=== PATIENT | female | born 1995 | race Caucasian/White ===

== ENCOUNTER 2018-04-04 11:08 | Inpatient (IN) | payer BC, OTHER ==
[~2018-04-04] VITALS: Ht 172.7 cm; Wt 49.9 kg
--- NOTE | 2018-04-04 13:17 | NUR ---
ADMISSION NOTE Patient is a 22 year old female admitted on 04/04/18 at 1317 to [facility] for medically supervised Heroin withdrawal. Patient is alert oriented x4 ambulatory with steady gait. Patient has NKA, full code and following regular diet at home. Upon arrival skin assessment done, skin intact no contraband found. She is alert oriented x4 able to answer all the questions appropriately. Patient presented with unwashed and uncombed hair. She is odors. She reported past medical history as anxiety, depression, and panic disorder. She is currently not taking any medications and did not bring any medication from home. She denies any family medical history or history of substance abuse. She refused Flu and PNA vaccine. She smokes 1 pack of cigrattes daily. She denies any PCP and psychiatrist. She reported her family and friends are her support system. CIWA score noted -3, COWS differed because last used was 2 hours prior to admission. Vital Signs - BP 135/79, HR- 91, RR -16 TEMP-98.5 SpO2-99% RA, PAIN-0/10. WITHDRAWAL SIGNS She stated currently she is experiencing stuffy nose, legs cramps, but usually she experience Vomiting, myalgia, insomnia, yawning, Phlegm, depression. She reported history of drug induced seizure on Cocaine x2 in August 2016 but did not get any medical help. She also reported history of Heroin overdose x1 and and received Narcan at the hospital in September 2016,she also had a history of Xanax over dose x1 in 2013 did not get any help. PSYCHIATRIC COMPLICATIONS She denies any history of SI/HI. She reported being placed on a 5150 in 2013 after an accidental overdose. She was released after 48 hours because she was not a danger to her self or others. TREATMENT HISTORY 1. [facility] outpatient and sober living in 2017 and stayed there for 4 months from October to January. SOBRIETY HISTORY She reported her longest periods of sobriety is 8 months which ended 3 months ago. SUBSTANCE USE HISTORY 1. HEROIN- She is using 1 to 2gm daily for the past 3 months. She reported she first started using it at age of 19. Patient had a 8 months of sober but relapsed 3 months ago. Last used was was 04/04/18 0.25gm 2 hours prior to admission. 2.XANAX-She is using 1-2mg per day for the past 3 months. She reported she first started using it at age 17. Pt had 8 months sober but relapsed 3 months ago. Last used 1mg PO on 04/03/18 at 2100. 3.METH- She was smoking 0.5gm per day for 2 years, and last used was 1 month ago 03/04/18 0.5gm. MOTIVATION She states the reason she started using is "Pretty much i lived with people who used and i ended up also using it". She states the reason she decided to get sober " Because i am not happy using it and it's not fun any more". She states that she is seeking treatment today because she is scared that her addiction has lead to her being homeless. she states the reason she relapsed 3 months ago " I was living in [facility] and i was loosing my apartment and i got scared and i ended up using. I lost my apartment, stopped going to AA meetings and stopped talking to sponsors. I started going out with people who use". She states " I am willing to stay sober and i am praying this is my last time, i want to live a normal life". Educated patient about plan of care including detox, group therapy, individual therapy and discharge planning. MD has been notified. All safety measures in place. Will cont with plan of care. Addendum: 04/05/18 at 0955 by LINDA SARABIA LVN Correction- Patient is using 1-2mg PO once a week for the past 3 months. Addendum: 04/05/18 at 1040 by LINDA SARABIA LVN Correction-Meth- She was smoking 0.2gm per day for 2 months.
[2018-04-04 13:40] VITALS: BP 135/79
--- NOTE | 2018-04-04 13:40 | NUR ---
Pre-admission Assessment VS BP 135/79 P 91 RR 16 T 98.5 SpO2: 99% RA Patient is a 22 year old female presenting to [facility] for medically supervised withdrawal from heroin. Patient also uses Xanax intermittently and used meth daily until 1 month ago. She is A&O x 4 and cooperative with assessment. She appears somewhat anxious and sad. Patient used 0.25g of heroin IV 2 hours before admission. Patient denies intoxication and does not appear intoxicated. She states that she is starting to have a stuffy nose and some discomfort/myalgia in her legs. Typical withdrawal sx include vomiting, severe myalgia, insomnia, yawning, depression. PMH includes Anxiety, Depression, and Panic Disorder but patient denies taking any home meds or having PCP or psychiatrist. History of OD x 2 (2013 and 2016). OD in 2013 led to 5150 but she was released after 48 hours because that OD was not intentional. Rohinialex brock tried to hurt myself on purpose. Denies SI/HI at this time. Seizure x 2 in August 2016 r/t cocaine use. For the past 3 months she has been using Heroin IV 1-2g/day (last use 0.25 g 2 hours before admission), Xanax 1-2 mg/week (last used 1 mg yesterday evening), and smoking Meth 0.5g/day x 2 months (last use 1 month ago). Admission will continue on the unit. Addendum: 04/05/18 at 1406 by MARTINA RIVERA RN Pre-admission was on 04/04/18 at 1240, not 1340.
[2018-04-04] MEDS ORDERED: HYDROXYZINE PAMOATE 25 MG CAPSULE PO PRN (16:45)
[2018-04-04] MEDS ORDERED: MAGNESIUM HYDROXIDE 30 ML LIQUID UDC PO PRN (16:45)
[2018-04-04] MEDS ORDERED: ACETAMINOPHEN 325 MG TABLET PO PRN (16:45)
[2018-04-04] MEDS ORDERED: MAG HYDROX/AL HYDROX/SIMETH 30 ML LIQUID UDC PO PRN (16:45)
[2018-04-04] MEDS ORDERED: IBUPROFEN 600 MG TABLET PO PRN (16:45)
[2018-04-04] MEDS ORDERED: ONDANSETRON ODT 4 MG TAB.RAPDIS SL PRN (16:45)
[2018-04-04] MEDS ORDERED: DIAZEPAM 10 MG TABLET PO PRN ×2 (16:45)
[2018-04-04] MEDS ORDERED: SRC OPIOID WITHDRAWAL ADMITTING PROTOCOL XX PRN (16:45)
[2018-04-04] MEDS ORDERED: CLONIDINE HCL 0.1 MG TABLET PO PRN (16:45)
[2018-04-04] MEDS ORDERED: BUPRENORPHINE HCL 2 MG TAB.SUBL SL PRN (16:45)
[2018-04-04] MEDS ORDERED: LOPERAMIDE HCL 2 MG CAPSULE PO PRN ×2 (16:45)
[2018-04-04] MEDS ORDERED: SRC BENZO WITHDRAWAL ADMITTING PROTOCOL XX PRN (16:45)
[2018-04-04] MEDS ORDERED: DIAZEPAM 5 MG TABLET PO PRN (16:45)
[2018-04-04] MEDS ORDERED: LORAZEPAM 2 MG/1 ML VIAL IM PRN (16:45)
[2018-04-04] MEDS ORDERED: ONDANSETRON 4 MG/2 ML VIAL IM PRN (16:45)
[2018-04-04] MEDS ORDERED: MIRALAX 17 GM POWD.PACK PO PRN (16:45)
[2018-04-04 17:03] LABS: *URINE HCG, QUAL NEGATIVE (NEGATIVE)
[2018-04-04 17:14] LABS: *AMPHETAMINE, URINE NEGATIVE (NEGATIVE); *BARBITURATE, URINE NEGATIVE (NEGATIVE); *CANNABINOID, URINE NEGATIVE (NEGATIVE); *COCCAINE, URINE NEGATIVE (NEGATIVE); *OPIATE, URINE POSITIVE (NEGATIVE); *PHENCYCLIDINE SCREEN,URINE NEGATIVE (NEGATIVE)
--- NOTE | 2018-04-04 19:26 | NUR ---
END OF SHIFT NOTE Patient is newly admitted for Heroin withdrawal. Patient is currently not on any taper but PRN'S available for increased s/s of withdrawal. Patient is currently resting in her room comfortable. Breathing normal no s/s of SOB noted. Skin intact warm and dry to touch. Vital signs WNL. Patient denies any SI/HI. Encourage PO fluids as tolerated. All needs are attended. Endorse patient to night nurse in stable condition.
--- NOTE | 2018-04-04 19:30 | NUR ---
Start of shift note Received report from day shift nurse. Patient is a 22 year old female newly admitted for Opioid withdrawal. Patient is on PRN Subutex and PRN Ativan. Patient did not require PRN medication. Last CIWA 3. Patient in the room. Alert and oriented x 3. Patient presents with eye avoid avoidant and disheveled. Patient reports anxiety, stuffy nose , sweating , restless legs and fatigue. Encourage fluids to facilitate detox. Safety measures in place. Will continue to monitor. Addendum: 04/05/18 at 2057 by ROHINI SANABRIA LVN Last COWS 3 not CIWA
[2018-04-04 20:00] VITALS: BP 95/58
[2018-04-04 20:41] LABS: BASOPHILS # (AUTO) 0.1 K/uL (0.0-8.0); BASOPHILS % (AUTO) 1.1 % (0.0-2.0); EOSINOPHILS # (AUTO) 0.1 K/uL (0.0-0.7); HEMATOCRIT 42.2 % (31.2-41.9); HEMOGLOBIN 14.3 g/dL (10.9-14.3); LYMPHOCYTES # (AUTO) 2.5 K/uL (20.0-40.0); LYMPHOCYTES % (AUTO) 35.5 % (20.5-51.5); MEAN CORPUSCULAR HEMOGLOBIN 30.5 uug (24.7-32.8); MEAN CORPUSCULAR HGB CONC 34 g/dL (32.3-35.6); MEAN CORPUSCULAR VOLUME 89.7 fL (75.5-95.3); MONOCYTES # (AUTO) 0.5 K/uL (2.0-10.0); MONOCYTES % (AUTO) 7.5 % (0.0-11.0); NEUTROPHILS # (AUTO) 3.9 K/uL (1.8-8.9); NEUTROPHILS % (AUTO) 53.9 % (38.5-71.5); PLATELET COUNT (AUTO) 209 K/uL (179-408); WHITE BLOOD COUNT (AUTO) 7.1 K/uL (3.8-11.8)
[2018-04-04 20:57] LABS: ALANINE AMINOTRANSFERASE 14 U/L (14-59); ALKALINE PHOSPHATASE 65 U/L (50-136); ASPARTATE AMINOTRANSFERASE 6 U/L (15-37); BILIRUBIN,TOTAL 0.2 mg/dL (0.2-1.0); CARBON DIOXIDE 30 mmol/L (21-32); CHLORIDE 105 mmol/L (98-107); CREATININE 0.8 mg/dL (0.6-1.3); GLUCOSE 97 mg/dL (74-106); UREA NITROGEN, BLOOD 10 mg/dL (7-18)
[2018-04-04] MEDS: METHOCARBAMOL 750 MG TABLET PO PRN (21:04)
--- NOTE | 2018-04-04 21:04 | NUR ---
PRN Robaxin administration Patient c/o restless legs. Will monitor for effectiveness
[2018-04-04 21:07] LABS: THYROID STIMULATING HORMONE 0.282 mIU/mL (0.358-3.740)
[2018-04-04 21:09] LABS: ETHANOL < 3 MG/DL (0-0)
[2018-04-04] MEDS: diphenhydrAMINE 50 MG CAPSULE PO PRN (21:10)
--- NOTE | 2018-04-04 21:10 | NUR ---
PRN Benadryl administration Patient requests for sleep aid. Will monitor for effectiveness
--- NOTE | 2018-04-04 22:04 | NUR ---
PRN Robaxin re-assessment Patient states Robaxin is helpful and effective.
--- NOTE | 2018-04-04 22:30 | NUR ---
PRN Benadryl re-assessment Patient lying in bed with eyes closed. Respiration even and unlabored. Will continue to monitor.
[2018-04-05] VITALS: BP 104/59
--- NOTE | 2018-04-05 | NUR ---
COWS and CIWA deferred Patient lying in bed with eyes closed. Respiration even and unlabored. Will continue to monitor
[2018-04-05 04:00] VITALS: BP 99/58
--- NOTE | 2018-04-05 04:00 | NUR ---
COWS and CIWA deferred Patient lying in bed with eyes closed. Respiration even and unlabored. Will continue to monitor
--- NOTE | 2018-04-05 07:20 | NUR ---
End of shift note Monitored patient throughout shift. Patient alert and oriented x 3. Patient reported anxiety, stuffy nose , sweating , restless legs and fatigue. Patient was given PRN Robaxin for restless legs and Benadryl for sleep. Encourage fluids to facilitate detox. Patient in the room most of the shift . Last COWS 8 and CIWA 7. Safety measures in place. Will continue to monitor. Patient slept 8 hours. Fluid intake 500 ml. Voided x 1. No BM.
--- NOTE | 2018-04-05 07:30 | NUR ---
START OF SHIFT NOTE Received report from night nurse, 22 year old female admitted for Heroin withdrawal. Patient currently not on any taper but PRN'S available for increased s/s of withdrawal. Per endorsement patient received PRN Benadryl, Robaxin, effective per night nurse, slept for 8 hours, last CI-/-. Received patient alert awake oriented x4, anxious, agitated, fatigue, restlessness, stuffy nose, stomach cramps. Patient is due for schedule medications. Educated patient on current plan of the day and medications regimen. Patient verbalized understanding. All safety measures in place. Will cont with plan of care.
[2018-04-05 08:00] VITALS: BP 103/62
[2018-04-05] MEDS: MULTIVITAMINS,THERAPEUTIC TABLET PO SCH (08:24)
[2018-04-05] MEDS ORDERED: TUBERCULIN,PURIF.PROT.DERIV. 5 TU/0.1 ML TEST ID ONE (09:00)
--- NOTE | 2018-04-05 10:38 | NUR ---
PRN SUBUTEX COWS score noted -14, patient exhibiting s/s of withdrawal such as runny nose tearing eyes, yawning, anxiety, agitation, flushed face, restless, fatigue, anhedonia. PRN Subutex 4mg SL administered as ordered. Will cont to monitor and reassess for effectiveness.
--- NOTE | 2018-04-05 11:08 | NUR ---
SUBUTEX REASSESSMENT COWS score noted 10. Per patient Subutex was effective in controlling her s/s of withdrawal.
[2018-04-05 12:00] VITALS: BP 112/69
--- NOTE | 2018-04-05 12:30 | NUR ---
Therapist prompted client to attend group therapy.
[2018-04-05] MEDS ORDERED: 5 DAY TAPER BUPRENORPHINE -SERENITY PROTOCOL SL PRN (12:45)
[2018-04-05 16:00] VITALS: BP 106/65
[2018-04-05] MEDS: BUPRENORPHINE HCL 2 MG TAB.SUBL SL SCH ×2 (17:27→21:25)
--- NOTE | 2018-04-05 19:30 | NUR ---
Start of shift note Received report from day shift nurse. Patient is a 22 year old female admitted for Opioid withdrawal. Patient was placed on 5 day Subutex taper. Patient did not require PRN medication. Last COWS 12. Patient in the room. Alert and oriented x 4. Patient's room dirty , clothes everywhere in the room and bed is messy. Patient reports anxiety, restlessness , stuffy nose , sweating , abdominal cramping and restless legs . Encourage fluids. Safety measures in place. Will continue to monitor.
--- NOTE | 2018-04-05 19:30 | NUR ---
END OF SHIFT NOTE Gave report to night nurse, 22 year old female admitted for Heroin withdrawal. Patient started on Subutex taper tolerating well. During shift patient presented with anxiety, agitation, restless, fatigue, bilateral hand tremors, body aches, flushed face,runny nose, tearing eyes, difficulty sitting still, patient received her scheduled medications and PRN Subutex 4MG noted to be effective. Last COWS- 12 at 1600. Pt attended all group activities. Safety measures in place. Will cont to provide safe and hazard free environment. Pt endorsed to night nurse in stable condition.
[2018-04-05 20:00] VITALS: BP 132/77
[2018-04-05] MEDS: METHOCARBAMOL 750 MG TABLET PO PRN (21:25)
--- NOTE | 2018-04-05 21:25 | NUR ---
PRN Robaxin administration Patient c/o restless legs. Will monitor for effectiveness
--- NOTE | 2018-04-05 22:25 | NUR ---
PRN Robaxin re-assessment Patient states medication is helpful and effective. Pain lessened
[2018-04-05] MEDS: diphenhydrAMINE 50 MG CAPSULE PO PRN (23:18)
--- NOTE | 2018-04-05 23:18 | NUR ---
PRN Benadryl administration Patient requests for sleep aid. Will monitor for effectiveness
--- NOTE | 2018-04-05 23:20 | NUR ---
PRN Motrin administration Patient c/o both legs pain. Will monitor for effectiveness
[2018-04-06] VITALS: BP 124/78
--- NOTE | 2018-04-06 | NUR ---
COWS deferred Patient lying in bed with eyes closed. Respiration even and unlabored. Will continue to monitor
--- NOTE | 2018-04-06 00:20 | NUR ---
VIOLA Cedeño re-assessment Patient lying in bed with eyes closed. NO facial grimacing . Respiration even and unlabored. Will continue to monitor.
[2018-04-06 04:00] VITALS: BP 116/72
--- NOTE | 2018-04-06 04:00 | NUR ---
COWS deferred Patient lying in bed with eyes closed. Respiration even and unlabored. Will continue to monitor
[2018-04-06 04:08] LABS: HEPATITIS B SURFACE AG Negative (Negative)
--- NOTE | 2018-04-06 07:01 | NUR ---
End of shift note Patient alert and oriented x 4. Patient reported anxiety, restlessness , stuffy nose , sweating , abdominal cramping and restless legs . Scheduled Subutex taper given , tolerated well and no adverse reaction . PRN Robaxin , was given for restless legs , PRN Benadryl given for sleep and Motrin for both leg pain. Continue to encourage fluids. Patient compliant with medication and treatment plan. Safety measures in place. Will continue to monitor. Slept 6 hours. Fluid intake 1,000 ml. Voided x 3. No BM.
--- NOTE | 2018-04-06 07:45 | NUR ---
START OF SHIFT Pt is a 22 yr old female, AA&Ox4. Pt was admitted on 04/04/18 for Opiate withdrawal and is on 5 day Subutex taper as ordered. received report from retail parts professional nurse. Pt was given Robaxin PRN, Benadryl PRN and Motrin PRN during the night. Pt slept for 6 hrs. Last COWS score was 12. Pt is currently observed wtih anxiety m/b difficulty staying still and is observed with stuffy nose. Pt is c/o lower back pain 5/10 and facial grimacing is noted. Skin is intact, warm and clammy to touch. Pt was encouraged increase fluid intake for hydration. Safety precautions observed. Will continue to monitor.
[2018-04-06 08:00] VITALS: BP 97/62
[2018-04-06] MEDS: BUPRENORPHINE HCL 2 MG TAB.SUBL SL SCH ×3 (09:00→21:00)
[2018-04-06] MEDS: MULTIVITAMINS,THERAPEUTIC TABLET PO SCH (09:29)
--- NOTE | 2018-04-06 10:00 | NUR ---
MEDICATION REFUSED Pt refused to take Subutex 4mg SL as scheduled at 0900. Pt states, "I feel good today, I don't feel like I need it". Pt was educated on the importance of medication regimen. Pt continued to refuse. MD is made aware. Will continue to monitor.
[2018-04-06 12:00] VITALS: BP 91/59
--- NOTE | 2018-04-06 15:00 | NUR ---
MEDICATION REFUSED Pt refused to take Subutex 4mg SL as scheduled at 1500. Pt states, "I don't feel bad. I feel fine that I don't need the Subutex". Pt was educated on the importance of medication regimen. Pt continued to refuse. MD is made aware. Will continue to monitor.
[2018-04-06 16:30] VITALS: BP 97/55
--- NOTE | 2018-04-06 19:10 | NUR ---
END OF SHIFT Pt is a 22 yr old female, AA&O4. Pt was admitted for Opiate withdrawal and is on 5 day Subutex taper as ordered. Pt has been observed attending group therapy. Pt refused to take Subutex 4mg SL as scheduled at 0900 and 1500. was made aware. Pt was c/o lower back pain and anxiety. Skin is warm and clammy to touch. No PRNs were given were given. Last COWS score was 6. Pt was encouraged increase fluid intake for hydration. Safety precautions observed. Endorsed to home organizer nurse to continue with care.
--- NOTE | 2018-04-06 19:30 | NUR ---
Start of Shift Patient Received. Per endorsement, patient is a 22 year old female that continues on a modified Subutex taper for Opiate withdrawals. Patient has been noted to refuse ordered taper doses. Patient has been noted to be compliant with group and social activities with no PRN medications administered. Last noted COWS 6. Upon rounds patient is noted in the activities room participating in a group meeting. All needs attended to promptly. Will continue plan of care as ordered.
[2018-04-06 20:30] VITALS: BP 112/63
[2018-04-06] MEDS: diphenhydrAMINE 50 MG CAPSULE PO PRN (23:26)
--- NOTE | 2018-04-06 23:26 | NUR ---
PRN medication Administration 2326 Patient is noted verbalizing inability of falling asleep. PRN Benadryl administered. Will continue to monitor.
[2018-04-07 00:12] VITALS: BP 102/60
--- NOTE | 2018-04-07 00:15 | NUR ---
PRN Medication Reassessment/COWS Assessment Patient is noted in bed with eyes closed. Breathing even and non labored. Patient is noted to easily awaken to verbal stimuli. Patient is compliant with vital signs. Patient is noted to easily fall back to sleep with no complications noted. COWS Assessment not able to be completed as per order. Will continue to monitor.
--- NOTE | 2018-04-07 04:37 | NUR ---
COWS Assessment and Vitals patient is noted in bed with eyes closed. breathing even and non labored. Patient refused vitals. COWS assessment not able to be completed as per order. No restlessness or facial grimacing noted. Will continue to monitor.
--- NOTE | 2018-04-07 07:05 | NUR ---
End of Shift Patient is noted in bed with eyes closed. Breathing even and non labored. No signs of restlessness or facial grimacing noted. Patient continues on a modified Subutex taper. Patient has been noted to refuse ordered Subutex doses. Patient continues to be monitored for increased chills, restlessness increased yawning, sweats, anxiety, agitation, and insomnia. Patient received PRN Benadryl with medication noted to be effective. Last noted COWS 6. Patient has been noted to be compliant with group and social activities. Patient noted to sleep a total of 7 hours. All needs attended to promptly. Will endorse to continue plan of care as ordered.
--- NOTE | 2018-04-07 07:51 | NUR ---
START OF SHIFT NOTE Received report from night nurse, 22 year old female admitted for Heroin withdrawal. Patient continues on Subutex taper. Per endorsement patient continuously refusing her taper, patient received PRN Benadryl, effective per night nurse, slept for 7 hours, last COWS-6. Received patient asleep responsive to verbal and tactile stimuli. Breathing normal no SOB noted. Skin intact warm and dry to touch. All safety measures in place. Will cont with plan of care.
[2018-04-07 08:00] VITALS: BP 102/60
[2018-04-07] MEDS: MULTIVITAMINS,THERAPEUTIC TABLET PO SCH (08:27)
--- NOTE | 2018-04-07 08:27 | NUR ---
REFUSED MEDICATION Patient refused her scheduled Subutex SL. Patient states"I feel good and i do not take Meds if if i am feeling good". Educated patient on the importance of taking medication regime. Patient continues to refused. has been notified. Will cont to monitor.
[2018-04-07] MEDS ORDERED: BUPRENORPHINE HCL 2 MG TAB.SUBL SL SCH (09:00)
--- NOTE | 2018-04-07 09:24 | NUR ---
Therapist prompted client to attend all daily group therapy sessions.
[2018-04-07 12:00] VITALS: BP 110/65
[2018-04-07] MEDS: BUPRENORPHINE HCL 2 MG TAB.SUBL SL SCH ×2 (15:00→20:55)
[2018-04-07 16:00] VITALS: BP 101/68
--- NOTE | 2018-04-07 19:11 | NUR ---
END OF SHIFT Gave report to night nurse, 22 years old female admitted for Opioids withdrawal. Patient completed her Subutex taper tolerated well. During shift patient did not receive any PRN'S medications. Patient is attending groups activities. Skin intact warm and dry to touch. Vital Signs WNL. Patient denies any SI/HI. Patient schedule for discharge in AM. Last COWS score was 5 at 1600 . All safety measures in place. Patient endorse to night nurse in stable condition.
--- NOTE | 2018-04-07 19:30 | NUR ---
Start of Shift Patient received. Per endorsement, patient is a 22 year old female that has completed a modified Subutex taper. Patient is set for discharge tomorrow 04/08/18 to [facility]. Patient continued to refuse taper medication. No PRN medications administered. Last noted COWS 5. Upon rounds patient is noted in the activities room participating in a group meeting. All needs attended to promptly. Will continue plan of care as ordered.
[2018-04-07 20:13] VITALS: BP 109/68
[2018-04-07] MEDS: diphenhydrAMINE 50 MG CAPSULE PO PRN (20:57)
--- NOTE | 2018-04-07 20:57 | NUR ---
PRN Medication Administration Patient is noted verbalizing inability of falling asleep. PRN Benadryl administered. Will continue to monitor.
--- NOTE | 2018-04-07 22:00 | NUR ---
PRN Medication Reassessment Patient is noted in bed with eyes closed. breathing even and non labored. No signs of restlessness or facial grimacing noted. PRN Benadryl noted to be effective. Will continue to monitor.
--- NOTE | 2018-04-08 00:27 | NUR ---
COWS and Vitals Patient is noted in bed with eyes closed. Breathing even and non labored. No signs of restlessness or facial grimacing noted. Vitals Refused. COWS not able to be completed as per order. Will continue to monitor.
--- NOTE | 2018-04-08 04:42 | NUR ---
Vitals and COWS Assessment Patient is noted in bed with eyes closed. Breathing even and non labored. Patient refused vitals. COWS Assessment not able to be completed as per order. No restlessness or facial grimacing noted. Will continue to monitor.
--- NOTE | 2018-04-08 06:54 | NUR ---
End of Shift Patient is noted in bed with eyes closed. Breathing even and non labored. No signs of restlessness or facial grimacing noted. Patient is a 22 year old female that has completed a modified Subutex taper. Patient is set for discharge today 04/08/[address] [facility]. Patient received PRN Benadryl with medication noted to be effective. Patient was closely monitored for increased signs and symptoms of withdrawal which included chills, sweats, restlessness, anxiety, tremors, and insomnia. Patient is noted to be flat with worried affect. Last noted COWS 5. Patient noted to sleep a total of 8 hours. All needs attended to promptly. Will endorse to continue plan of care as ordered.
--- NOTE | 2018-04-08 07:30 | NUR ---
Start of shift note: received pt from police shift commander nurse, pt is admitted to [facility] for opiate/benzo withdrawal/dependence. pt's last documented cows 5. pt is set to discharge today. will assist pt in discharging and will continue to monitor pt for any changes
[2018-04-08] MEDS: MULTIVITAMINS,THERAPEUTIC TABLET PO SCH (08:39)
[2018-04-08] MEDS ORDERED: BUPRENORPHINE HCL 2 MG TAB.SUBL SL SCH (09:00)
--- NOTE | 2018-04-08 09:58 | NUR ---
discharge note: pt left the unit in stable condition no s/s of acute withdrawal at this time. pt refused multivitamin explained risk and benefits x 3. pt teaching administered for discharge and pt verbalized understanding. pt will be transferred to [facility] via private car
[2018-04-09] MEDS ORDERED: BUPRENORPHINE HCL 2 MG TAB.SUBL SL SCH (09:00)
== END 2018-04-08 09:58 | disposition other institution (70) | DRG 895 ==
LOC: SRC 13:32
PROVIDERS: ADMIT Family Medicine Addiction Medicine; ATTEND Family Medicine Addiction Medicine
PROC: HZ2ZZZZ Detoxification Services for Substance Abuse Treatment (ICD-10-PCS; principal; 2018-04-04)
PROC: HZ2ZZZZ Detoxification Services for Substance Abuse Treatment (ICD-10-PCS; 2018-04-05)
PROC: HZ41ZZZ Group Counseling for Substance Abuse Treatment, Behavioral (ICD-10-PCS; 2018-04-05)
PROC: HZ31ZZZ Individual Counseling for Substance Abuse Treatment, Behavioral (ICD-10-PCS; 2018-04-07)
DX: F11.23 Opioid dependence with withdrawal (principal); G40.509 Epileptic seizures related to external causes, not intractable, without status epilepticus; F13.230 Sedative, hypnotic or anxiolytic dependence with withdrawal, uncomplicated; F41.1 Generalized anxiety disorder; F41.0 Panic disorder [episodic paroxysmal anxiety]; F17.210 Nicotine dependence, cigarettes, uncomplicated; Z81.3 Family history of other psychoactive substance abuse and dependence; F32.9 Major depressive disorder, single episode, unspecified
CPT/HCPCS: 36415; 70030-TC; 80307; 80346; 80361; 83735; 84443; 84703; 85025; 86580; 86592; 86705; 86803; 87340; 87806; A4663; G0480; Q0163